=== PATIENT | female | born 1970 | race Two or more races ===

== ENCOUNTER 2022-05-17 06:20 | Day surgery (SDC) | payer OTHER ==
[~2022-05-17] VITALS: Ht 160 cm; Wt 90.7 kg
[~2022-05-17 06:20] MED LIST: ANASTROZOLE1 MG PO; COZAAR25 MG PO; CRESTOR20 MG PO; GLUMETZA500 MG PO
== END 2022-05-17 18:30 | disposition home or self-care (01) ==
LOC: CIR.AMB 06:20
PROVIDERS: ATTEND Surgery
DX: D05.12 Intraductal carcinoma in situ of left breast (principal); C77.3 Secondary and unspecified malignant neoplasm of axilla and upper limb lymph nodes; Z20.822 Contact with and (suspected) exposure to COVID-19; I10 Essential (primary) hypertension; F17.210 Nicotine dependence, cigarettes, uncomplicated; E11.9 Type 2 diabetes mellitus without complications; Z79.84 Long term (current) use of oral hypoglycemic drugs; E78.5 Hyperlipidemia, unspecified; J43.9 Emphysema, unspecified
CPT/HCPCS: 19301; 19281; 38525; 78195; L8699; A9541